=== PATIENT | male | born 1980 | race African-American/Black ===

== ENCOUNTER 2016-09-23 18:05 | Emergency (ER) | payer SELFPAY ==
[~2016-09-23] VITALS: Ht 185.4 cm; Wt 113.6 kg
[~2016-09-23 18:05] MED LIST: AMOXICILLIN 50500 MG PO; BACTRIM DS 8001 TAB PO; CEPHALEXIN500 M1 PO; FLEXERIL 1010 MG/TAB PO; LORTAB 5/500 501 TAB PO; MEDROL 4MG DOSPA4 MG PO; NAPROSYN500 MG PO; NO HOME MEDICATIONS; NORCO 325 MG-51 TAB PO; NORCO 325 MG-7.1 TAB PO; PREDNISONE10 MG PO; ULTRAM 50MG TAB50 MG PO; VENTOLIN0.09 MG IH; ZITHROMAX 250M250 MG PO; ZITHROMAX Z PA250 MG PO
[2016-09-23 18:06] VITALS: BP 179/118; PULSE 99; TEMP 98.7
== END 2016-09-23 19:27 | disposition home or self-care (01) ==
LOC: COL.ER 18:05
DX: M25.561 Pain in right knee (principal)
CPT/HCPCS: L1830

== ENCOUNTER 2017-05-02 19:06 | Emergency (ER) | payer OTHER ==
[~2017-05-02] VITALS: Ht 185.4 cm; Wt 122.7 kg
[2017-05-02 19:19] VITALS: BP 179/113; PULSE 99; TEMP 98.8
[2017-05-03] MEDS ORDERED: FLEXERIL 1010 MG/TAB PO (09:39)
== END 2017-05-02 20:27 | disposition left against medical advice (07) ==
LOC: COL.ER 19:06
DX: M54.2 Cervicalgia (principal); M54.5 Low back pain; V89.2XXA Person injured in unspecified motor-vehicle accident, traffic, initial encounter

== ENCOUNTER 2017-05-03 08:22 | Emergency (ER) | payer OTHER ==
[~2017-05-03] VITALS: Ht 185.4 cm; Wt 122.7 kg
[2017-05-03 08:42] VITALS: BP 175/116; TEMP 98
[2017-05-03] MEDS ORDERED: FLEXERIL 1010 MG/TAB PO (09:39)
[2017-05-03 10:42] VITALS: PULSE 92
== END 2017-05-03 10:44 | disposition home or self-care (01) ==
LOC: COL.ER 08:22
DX: S16.1XXA Strain of muscle, fascia and tendon at neck level, initial encounter (principal); V89.2XXA Person injured in unspecified motor-vehicle accident, traffic, initial encounter
CPT/HCPCS: J1885; J2360

== ENCOUNTER → 2017-05-24 | Outpatient (CLI) | payer SELFPAY | LOC: COL.RAD 17:53 | DX: J22 Unspecified acute lower respiratory infection (principal); R09.89 Other specified symptoms and signs involving the circulatory and respiratory systems; F17.210 Nicotine dependence, cigarettes, uncomplicated ==

== ENCOUNTER 2017-06-17 14:42 | Emergency (ER) | payer SELFPAY ==
[~2017-06-17] VITALS: Ht 185.4 cm; Wt 122.8 kg
[2017-06-17] MEDS ORDERED: ZANTAC 7575 MG PO (14:54)
[2017-06-17] MEDS ORDERED: AMOXICILLIN 8751 TAB PO (14:54)
[2017-06-17 16:30] LABS: BASO # 0.1 (0.0-0.2); BASO % 0.8 % (0.0-2.0); EOS # 0.1 (0.0-0.7); EOS % 1.3 % (0-4.0); GRAN # 5.1 (1.4-6.5); GRAN % 51.6 % (42.2-75.2); HEMOGLOBIN 14.4 g/dl (13.5-18.0); LYMPH # 3.7 (1.2-3.4); LYMPH % 37.6 % (20.0-51.0); MEAN CELL VOLUME 92 fl (80.0-100.0); MEAN CORPUSCULAR HEMOGLOBIN 31 pg (27.0-31.0); MEAN CORPUSCULAR HGB CONC 34 g/dl (33.0-37.0); MEAN PLATELET VOLUME 11.1 fl (7.4-10.4); MONO # 0.8 (0.1-0.6); MONO % 8.2 % (1.7-9.3); PLATELET COUNT 164 K/mm3 (130-400); RED BLOOD COUNT 4.58 M/mm3 (4.20-5.60); REDCELL DISTRIBUTION WIDTH-CV 12.5 % (11.5-14.5)
[2017-06-17 16:48] LABS: ALBUMIN 4.5 gm/dL (3.5-5.0); BILIRUBIN,TOTAL 0.7 mg/dL (0.0-1.0); CALCIUM 9.2 mg/dL (8.4-10.2); CREATININE, serum 1.17 mg/dL (0.66-1.25); POTASSIUM 4.7 mmol/L (3.4-5.0); TOTAL PROTEIN 7.5 gm/dL (6.4-8.2)
[2017-06-17 17:01] LABS: TROPONIN-I 0.054 ng/mL (0.000-0.034)
[2017-06-17 19:00] VITALS: BP 172/102; PULSE 88; TEMP 98
== END 2017-06-17 19:00 | disposition short-term general hospital (02) ==
LOC: COL.ER 14:42
PROVIDERS: Emergency Medicine
DX: I10 Essential (primary) hypertension (principal); F10.20 Alcohol dependence, uncomplicated; R79.89 Other specified abnormal findings of blood chemistry; F17.210 Nicotine dependence, cigarettes, uncomplicated
CPT/HCPCS: J0360; J1940; J2060; J7050

== ENCOUNTER 2017-12-05 23:23 | Emergency (ER) | payer SELFPAY ==
[~2017-12-05] VITALS: Ht 185.4 cm; Wt 113.6 kg
[~2017-12-05 23:23] MED LIST changes: +AMOXICILLIN 8751 TAB PO; +ZANTAC 7575 MG PO
[2017-12-05 23:37] VITALS: TEMP 97.6
[2017-12-06] MEDS ORDERED: K-DUR20 MEQ PO ×2 (00:10→01:05)
[2017-12-06] MEDS ORDERED: PRINIVIL20 MG PO ×2 (00:11→01:05)
[2017-12-06] MEDS ORDERED: TOPROL XL100 MG PO ×2 (00:11→01:05)
[2017-12-06] MEDS ORDERED: LASIX 80MG TABL80 MG PO ×2 (00:11→01:05)
[2017-12-06 00:15] LABS: ALANINE AMINOTRANSFERASE 61 U/L (21-72); ALBUMIN 4.8 gm/dL (3.5-5.0); ALKALINE PHOSPHATASE 76 U/L (50-136); ANION GAP 14 mmol/L (7-16); AST,SGOT 43 U/L (15-37); BILIRUBIN,TOTAL 0.6 mg/dL (0.0-1.0); BLOOD UREA NITROGEN 15 mg/dL (9-20); CARBON DIOXIDE 25 mmol/L (22-30); CHLORIDE 97 mmol/L (98-107); CREATININE, serum 1.14 mg/dL (0.66-1.25); GLUCOSE 101 mg/dL (74-106); POTASSIUM 4.1 mmol/L (3.4-5.0); SODIUM 136 mmol/L (137-145); TOTAL PROTEIN 8.8 gm/dL (6.4-8.2)
[2017-12-06 00:31] LABS: TROPONIN-I < 0.012 ng/mL (0.000-0.034)
[2017-12-06 00:33] LABS: BASO # 0.1 (0.0-0.2); BASO % 0.4 % (0.0-2.0); EOS # 0.3 (0.0-0.7); GRAN # 8.6 (1.4-6.5); GRAN % 62.2 % (42.2-75.2); HEMATOCRIT 45.1 % (42.0-52.0); HEMOGLOBIN 15.7 g/dl (13.5-18.0); LYMPH # 3.6 (1.2-3.4); LYMPH % 26.2 % (20.0-51.0); MEAN CELL VOLUME 91 fl (80.0-100.0); MEAN CORPUSCULAR HEMOGLOBIN 32 pg (27.0-31.0); MEAN CORPUSCULAR HGB CONC 35 g/dl (33.0-37.0); MEAN PLATELET VOLUME 9.4 fl (7.4-10.4); MONO # 1.2 (0.1-0.6); MONO % 8.6 % (1.7-9.3); PLATELET COUNT 256 K/mm3 (130-400); RED BLOOD COUNT 4.97 M/mm3 (4.20-5.60); REDCELL DISTRIBUTION WIDTH-CV 11.9 % (11.5-14.5)
[2017-12-06 01:02] VITALS: BP 143/96; PULSE 79
[2017-12-06] MEDS ORDERED: ZITHROMAX 250M250 MG PO (01:05)
== END 2017-12-06 01:26 | disposition home or self-care (01) ==
LOC: COL.ER 23:23
PROVIDERS: Emergency Medicine
DX: J20.9 Acute bronchitis, unspecified (principal); J45.909 Unspecified asthma, uncomplicated; I50.9 Heart failure, unspecified; I42.9 Cardiomyopathy, unspecified; F17.210 Nicotine dependence, cigarettes, uncomplicated; I11.0 Hypertensive heart disease with heart failure

== ENCOUNTER → 2018-04-08 | Outpatient (CLI) | payer SELFPAY ==
[~2018-04-08] MED LIST changes: +K-DUR20 MEQ PO; +LASIX 80MG TABL80 MG PO; +PRINIVIL20 MG PO; +TOPROL XL100 MG PO
[2018-04-08 13:13] LABS: COLLECTION METHOD RANDOM VOIDED
[2018-04-08 13:21] LABS: MUCOUS Present /lpf; PH 5 (5-8); SQUAMOUS EPITHELIAL 0-2 /hpf; URINE APPEARANCE Clear; URINE BACTERIA None Seen /hpf; URINE BILIRUBIN Negative (NEGATIVE); URINE BLOOD 2+ (NEGATIVE); URINE COLOR Yellow; URINE GLUCOSE Negative (NEGATIVE); URINE KETONE Negative (NEGATIVE); URINE LEUKOCYTE ESTERASE Negative (NEGATIVE); URINE NITRATE Negative (NEGATIVE); URINE PROTEIN(semi-quant) Negative (NEGATIVE); URINE UROBILINOGEN Negative (NEGATIVE); URINE WBC 0-2 /hpf
[2018-04-08 13:29] LABS: ALBUMIN 4.6 gm/dL (3.5-5.0); BILIRUBIN,TOTAL 0.4 mg/dL (0.0-1.0); CALCIUM 10.2 mg/dL (8.4-10.2); CHOLESTEROL RISK RATIO 5.3; CREATININE, serum 1.12 mg/dL (0.66-1.25); POTASSIUM 4.8 mmol/L (3.4-5.0)
== END ==
LOC: ZLAB.FHCC 11:31
PROVIDERS: Family Medicine
DX: I10 Essential (primary) hypertension (principal)

== ENCOUNTER 2018-04-22 07:19 | Emergency (ER) | payer SELFPAY ==
[~2018-04-22] VITALS: Ht 185.4 cm; Wt 121.8 kg
[2018-04-22 07:24] VITALS: TEMP 97.6
[2018-04-22 07:56] LABS: BASO # 0.1 (0.0-0.2); BASO % 0.6 % (0.0-2.0); EOS # 0.1 (0.0-0.7); GRAN # 4.2 (1.4-6.5); GRAN % 50.3 % (42.2-75.2); HEMATOCRIT 46.1 % (42.0-52.0); HEMOGLOBIN 15.8 g/dl (13.5-18.0); LYMPH # 3.3 (1.2-3.4); LYMPH % 39.2 % (20.0-51.0); MEAN CELL VOLUME 89 fl (80.0-100.0); MEAN CORPUSCULAR HEMOGLOBIN 30 pg (27.0-31.0); MEAN CORPUSCULAR HGB CONC 34 g/dl (33.0-37.0); MEAN PLATELET VOLUME 9.7 fl (7.4-10.4); MONO # 0.7 (0.1-0.6); MONO % 8.4 % (1.7-9.3); PLATELET COUNT 233 K/mm3 (130-400)
[2018-04-22 08:08] LABS: ALANINE AMINOTRANSFERASE 49 U/L (21-72); ALBUMIN 4.5 gm/dL (3.5-5.0); ALKALINE PHOSPHATASE 69 U/L (50-136); ANION GAP 10 mmol/L (7-16); AST,SGOT 40 U/L (15-37); BILIRUBIN,TOTAL 0.5 mg/dL (0.0-1.0); BLOOD UREA NITROGEN 21 mg/dL (9-20); CALCIUM 9.8 mg/dL (8.4-10.2); CARBON DIOXIDE 24 mmol/L (22-30); CHLORIDE 102 mmol/L (98-107); CREATININE, serum 1.15 mg/dL (0.66-1.25); GLUCOSE 105 mg/dL (74-106); POTASSIUM 4.3 mmol/L (3.4-5.0); SODIUM 136 mmol/L (137-145); TOTAL PROTEIN 7.8 gm/dL (6.4-8.2)
[2018-04-22 08:18] VITALS: BP 143/96; PULSE 89
== END 2018-04-22 08:25 | disposition home or self-care (01) ==
LOC: COL.ER 07:19
PROVIDERS: Family Medicine
DX: I11.0 Hypertensive heart disease with heart failure (principal); E78.5 Hyperlipidemia, unspecified; I50.9 Heart failure, unspecified; J45.909 Unspecified asthma, uncomplicated; F17.210 Nicotine dependence, cigarettes, uncomplicated; Z86.79 Personal history of other diseases of the circulatory system

== ENCOUNTER → 2018-05-12 | Outpatient (CLI) | payer SELFPAY ==
[2018-05-12 13:30] LABS: CALCIUM 9.6 mg/dL (8.4-10.2); CREATININE, serum 1.28 mg/dL (0.66-1.25); MAGNESIUM 2.2 mg/dL (1.6-2.3); POTASSIUM 4.5 mmol/L (3.4-5.0)
== END ==
LOC: ZLAB.FHCC 11:38
DX: Z01.89 Encounter for other specified special examinations (principal)

== ENCOUNTER 2018-06-13 12:12 | Emergency (ER) | payer SELFPAY ==
[~2018-06-13] VITALS: Ht 185.4 cm; Wt 121.2 kg
[2018-06-13] MEDS ORDERED: AMOXICILLIN875 MG PO (12:51)
[2018-06-13] MEDS ORDERED: NORCO 325 MG-51 TAB PO (12:51)
[2018-06-13 12:56] VITALS: BP 118/84; PULSE 78; TEMP 97.7
== END 2018-06-13 12:55 | disposition home or self-care (01) ==
LOC: COL.ER 12:12
DX: K08.89 Other specified disorders of teeth and supporting structures (principal); I25.10 Atherosclerotic heart disease of native coronary artery without angina pectoris; I10 Essential (primary) hypertension; F17.210 Nicotine dependence, cigarettes, uncomplicated

== ENCOUNTER 2018-08-14 09:15 | Emergency (ER) | payer SELFPAY ==
[~2018-08-14] VITALS: Ht 185.4 cm; Wt 113.6 kg
[~2018-08-14 09:15] MED LIST changes: +AMOXICILLIN875 MG PO
[2018-08-14 09:17] VITALS: TEMP 97.1
[2018-08-14] MEDS ORDERED: ZANTAC 7575 MG PO (09:23)
[2018-08-14] MEDS ORDERED: CILOXAN .3% EY2.5 ML OD (09:46)
[2018-08-14] MEDS ORDERED: AMOXICILLIN 8751 TAB PO (09:46)
[2018-08-14] MEDS ORDERED: NORVASC 5MG5 MG/TAB PO (09:47)
[2018-08-14 09:58] VITALS: BP 188/113; PULSE 86
== END 2018-08-14 10:08 | disposition home or self-care (01) ==
LOC: COL.ER 09:15
DX: H00.031 Abscess of right upper eyelid (principal); I10 Essential (primary) hypertension

== ENCOUNTER 2019-01-21 12:53 | Emergency (ER) | payer SELFPAY ==
[~2019-01-21] VITALS: Ht 185.4 cm; Wt 120.5 kg
[~2019-01-21 12:53] MED LIST changes: +CILOXAN .3% EY2.5 ML OD; +NORVASC 5MG5 MG/TAB PO
[2019-01-21 13:41] VITALS: BP 185/122; PULSE 80; TEMP 98.4
[2019-01-21] MEDS ORDERED: NORVASC 5MG5 MG/TAB PO (13:46)
== END 2019-01-21 13:52 | disposition home or self-care (01) ==
LOC: COL.ER 12:53
DX: H00.11 Chalazion right upper eyelid (principal)

== ENCOUNTER 2019-09-26 21:45 | Inpatient (IN) | payer SELFPAY ==
[~2019-09-26] VITALS: Ht 185.4 cm; Wt 115.4 kg
[2019-09-26] MEDS ORDERED: NORVASC 5MG5 MG/TAB PO (23:27)
[2019-09-27] VITALS (59 sets, daily range): BP systolic 154–186; BP diastolic 91–130; PULSE 61–85; TEMP 97.4–98; O2SAT 96–100
[2019-09-27 01:14] LABS: BASO # 0.1 (0.0-0.2); BASO % 0.5 % (0.0-2.0); EOS # 0.1 (0.0-0.7); EOS % 1.2 % (0-4.0); GRAN # 5.3 (1.4-6.5); GRAN % 48.9 % (42.2-75.2); HEMATOCRIT 44.7 % (42.0-52.0); LYMPH # 4.3 (1.2-3.4); LYMPH % 39.9 % (20.0-51.0); MEAN CELL VOLUME 91 fl (80.0-100.0); MEAN CORPUSCULAR HEMOGLOBIN 31 pg (27.0-31.0); MEAN CORPUSCULAR HGB CONC 34 g/dl (33.0-37.0); MEAN PLATELET VOLUME 9.9 fl (7.4-10.4); PLATELET COUNT 217 K/mm3 (130-400); RED BLOOD COUNT 4.89 M/mm3 (4.20-5.60); REDCELL DISTRIBUTION WIDTH-CV 12.9 % (11.5-14.5)
[2019-09-27 01:23] LABS: ALBUMIN 4.6 gm/dL (3.5-5.0); BILIRUBIN,TOTAL 0.9 mg/dL (0.0-1.0); CALCIUM 9.4 mg/dL (8.4-10.2); CREATININE, serum 1.12 (0.66-1.25); POTASSIUM 3.9 mmol/L (3.4-5.0); TOTAL PROTEIN 8.3 gm/dL (6.4-8.2)
[2019-09-27 01:40] LABS: TROPONIN-I 0.051 ng/mL (0.000-0.035)
[2019-09-27 03:43] LABS: PROTHROMBIN TIME 11.2 SECONDS (9.7-12.8)
[2019-09-27 03:46] LABS: PARTIAL THROMBOPLASTIN TIME 30.7 SECONDS (26.0-37.0)
[2019-09-27 03:49] LABS: ALCOHOL(ethanol),MEDICAL < 10 mg/dL; MAGNESIUM 2.3 mg/dL (1.6-2.3)
[2019-09-27 04:12] LABS: CHOLESTEROL RISK RATIO 4.5
--- NOTE | 2019-09-27 07:15 | NUR ---
Bedside shift report received from EMMETT Servin. Full assessment completed, vital signs stable. IV access assessed and secured. Bed in lowest position, side rails up x2, call light within reach. Patient has no complaints or concerns at this time.
[2019-09-27 08:47] LABS: COLLECTION METHOD CLEAN CATCH
[2019-09-27 08:56] LABS: MUCOUS Present /lpf; PH 7 (5-8); SQUAMOUS EPITHELIAL None Seen /hpf; URINE APPEARANCE Clear; URINE BACTERIA None Seen /hpf; URINE BILIRUBIN Negative (NEGATIVE); URINE BLOOD 3+ (NEGATIVE); URINE COLOR Yellow; URINE GLUCOSE Negative (NEGATIVE); URINE KETONE Negative (NEGATIVE); URINE LEUKOCYTE ESTERASE Negative (NEGATIVE); URINE NITRATE Negative (NEGATIVE); URINE PROTEIN(semi-quant) Negative (NEGATIVE); URINE UROBILINOGEN Negative (NEGATIVE); URINE WBC 0-2 /hpf
--- NOTE | 2019-09-27 10:43 | NUR ---
Plan: To return home with roommates as care support. patient reports his sister Salome [phone] as care support and EMr. Patient does not currently have a DPOA. He resides in [facility]. Assess: SW met with patient at his bedside. Patient reports that he does not use any DME and that he currently does not have a PCP. Patient reports that he had been going to the [facility], however he had missed an appointment and so he had not been able to go back. Patient indicated that he receives his medications from [facility] with no concerns. patient denied having any care concerns. Action: SW did discuss pay information with patient, he had already received a financial assistance application, we discussed patient connecting with [facility] to begin care services after patient leaves the hospital as well as their medication assistance program. Patient was provided with contact information for [facility]. SW may wish to follow up in regards to scheduling.
[2019-09-27 13:25] LABS: TRICYCLIC ANTIDEPRESS URINE NEGATIVE
--- NOTE | 2019-09-27 14:48 | NUR ---
Report given to EMMETT Chang on the medical floor at this time.
--- NOTE | 2019-09-27 15:09 | NUR ---
Patient transferred to medical bed 317 via wheelchair with no complications. Patient on telemetry, bed in lowest position, side rails up x2, call light placed within reach. Personal items placed in closet. Patient has no complaints or concerns at this time. EMMETT Chang notified of patient's arrival and chart placed at racing secretary and handicapper's desk.
--- NOTE | 2019-09-27 15:41 | NUR ---
PT ARRIVED TO UNIT VIA WC ACCOMPANIED BY NURSE JOYCE @ 1500. AOX4. DENIES ANY PAIN, SERRANO, CP, N/V. SOFT WRIST BRACE ON LT HAND. HAND TENDER TO TOUCH AND MOTION. APPEARS MILDLY SWOLLEN. PT REPORTS PAIN WITH MOVING FINGERS BUT ABLE TO RAISE. ON TELE. IV TO RT FA INTACT.
--- NOTE | 2019-09-27 21:40 | NUR ---
Patient blood pressure remains elevated after admistration of hydralazine. Patient currently upset and "stressed" due to hospitalization and friends texting. Educated patient to decrease stressors due to possible cause of elevated BP. Will recheck BP
--- NOTE | 2019-09-27 22:48 | NUR ---
Resting in bed. Assessment complete. Lungs clear. Heart sounds normal. Bowels active x4. Pulses present throughout. No edema noted. Denies pain. BP elevated. Provided with PRN hydralazine at this time. Will monitor.
--- NOTE | 2019-09-27 23:06 | NUR ---
Patient BP continues to be elevated. Spoke with Annie CASTILLO. orders for x1 dose of hydralazine now added. Provided to patient.
[2019-09-28] VITALS (18 sets, daily range): BP systolic 138–188; BP diastolic 68–110; PULSE 67–110; TEMP 97.2–98.2
--- NOTE | 2019-09-28 00:10 | NUR ---
BP elevated. Per Annie CASTILLO given x1 dose of lisinopril 20mg PO. Will monitor.
--- NOTE | 2019-09-28 01:55 | NUR ---
Spoke with Annie CASTILLO. Patient BP remains elevated. Orders for hydralazine 10mg IV and lisinopril 20mg PO given. Patient voices concern with hospitalization, daughter, ex-spouse, heart being f up, states "its to late, what does it matter?" Educated patient on treatment plan and provided emotional support. Patient states "I just want to go home." Allowed this nurse to give medications. Denied other needs. Will monitor.
--- NOTE | 2019-09-28 02:13 | NUR ---
Manual BP 182/110. Annie CASTILLO notified. Orders for clonidine added. Provided to patient.
--- NOTE | 2019-09-28 02:43 | NUR ---
30 minute recheck after clonidine 160/88. Patient remains asymptomatic throughout night. Annie LANDN notified.
--- NOTE | 2019-09-28 03:15 | NUR ---
1 hour recheck is 142/98. Annie CASTILLO aware. Will continue to monitor.
--- NOTE | 2019-09-28 06:11 | NUR ---
Patient blood pressure elevated during night. Communicated with hospitalist for orders. Otherwise uneventful night. Resting in bed this AM. Call light in reach.
[2019-09-28 06:50] LABS: BASO % 0.3 % (0.0-2.0); EOS # 0.1 (0.0-0.7); EOS % 1.5 % (0-4.0); GRAN # 4.7 (1.4-6.5); GRAN % 53.8 % (42.2-75.2); HEMATOCRIT 49.1 % (42.0-52.0); HEMOGLOBIN 16.7 g/dl (13.5-18.0); MEAN CELL VOLUME 90 fl (80.0-100.0); MEAN CORPUSCULAR HEMOGLOBIN 31 pg (27.0-31.0); MEAN CORPUSCULAR HGB CONC 34 g/dl (33.0-37.0); MEAN PLATELET VOLUME 9.8 fl (7.4-10.4); MONO # 0.9 (0.1-0.6); MONO % 9.8 % (1.7-9.3); PLATELET COUNT 212 K/mm3 (130-400); RED BLOOD COUNT 5.47 M/mm3 (4.20-5.60); REDCELL DISTRIBUTION WIDTH-CV 12.7 % (11.5-14.5)
[2019-09-28 06:59] LABS: CREATININE, serum 1.06 (0.66-1.25); POTASSIUM 3.8 mmol/L (3.4-5.0)
--- NOTE | 2019-09-28 07:31 | NUR ---
Report given to EMMETT Morley
--- NOTE | 2019-09-28 10:38 | NUR ---
First visit from the food cooking machine operator. No needs right now.
--- NOTE | 2019-09-28 14:43 | NUR ---
PT LAYING IN BED, GENERALLY PLEASANT. PT DOES NOT WANT TO BE HERE HE DOES HAVE CONCERNS WITH HOW HE IS GOING TO PAY FOR THIS VISIT D/T NO INSURANCE. SW IS AWARE OF HIS CONCERNS AND IS FOLLOWING UP WITH FINANCE REGARDING THIS ISSUE. PT OTHERWISE HAS NO COMPLAINTS. CALL LIGHT WITHIN REACH. NO FURTHER CONCERNS AT THIS TIME.
--- NOTE | 2019-09-28 14:51 | NUR ---
Balance Assembler followed up with patient who would like follow [facility]. SARA scheduled appointment for 10/07 @ 4472 and provided appointment to community support worker. SARA faxed records to [facility] and will continue to follow.
--- NOTE | 2019-09-28 19:18 | NUR ---
REPORT GIVEN TO EMMETT RENEE.
--- NOTE | 2019-09-28 20:04 | NUR ---
Resting in bed. Assessment complete. Lungs clear. Heart sounds normal. Bowels active x4. Pulses strong throughout. No edema noted. INT right wrist flushed without complications. Denies pain. Denies needs at this time. Call light in reach.
--- NOTE | 2019-09-28 20:20 | NUR ---
BP elevated. Annie CASTILLO notified. Patient received last dose of hydralazine at 1830. Annie CASTILLO added coreg 6.25mg. Provided to patient. Will monitor.
--- NOTE | 2019-09-28 21:19 | NUR ---
2049: Patient reported 7/10 midsternal to right side chest pain. EKG ordered. VS taken and stable. 2051: Respiratory notified of EKG orders. 2057: Respiratory and this nurse in room with patient. Patient has reported chest pain resolved without intervention. Annie CASTILLO notified-no new orders at this time. Will continue to monitor.
--- NOTE | 2019-09-28 22:08 | NUR ---
Resting in bed. Denies needs. Call light in reach.
--- NOTE | 2019-09-28 23:41 | NUR ---
Resting in bed. Denies needs. Call light in reach.
[2019-09-29] VITALS (11 sets, daily range): BP systolic 118–153; BP diastolic 20–98; PULSE 66–82; TEMP 97.7–98.5
--- NOTE | 2019-09-29 02:35 | NUR ---
Resting in bed asleep. Call light in reach.
--- NOTE | 2019-09-29 04:31 | NUR ---
resting in bed. Denies needs. Call light in reach.
--- NOTE | 2019-09-29 06:02 | NUR ---
Earlier in evening patient received an additional dose of coreg for blood pressure control. Otherwise patient had uneventful night. Started preop fluids as ordered this Am. Denied needs. Call light in reach.
--- NOTE | 2019-09-29 07:18 | NUR ---
Report given to EMMETT Garcia
[2019-09-29 07:53] LABS: HEMATOCRIT 49.4 % (42.0-52.0); HEMOGLOBIN 16.7 g/dl (13.5-18.0); MEAN CELL VOLUME 91 fl (80.0-100.0); MEAN CORPUSCULAR HEMOGLOBIN 31 pg (27.0-31.0); MEAN CORPUSCULAR HGB CONC 34 g/dl (33.0-37.0); MEAN PLATELET VOLUME 10.4 fl (7.4-10.4); PLATELET COUNT 222 K/mm3 (130-400); RED BLOOD COUNT 5.45 M/mm3 (4.20-5.60); REDCELL DISTRIBUTION WIDTH-CV 12.8 % (11.5-14.5)
[2019-09-29 08:07] LABS: ALBUMIN 4.6 gm/dL (3.5-5.0); CALCIUM 9.8 mg/dL (8.4-10.2); CREATININE, serum 1.15 (0.66-1.25); POTASSIUM 3.6 mmol/L (3.4-5.0); TOTAL PROTEIN 8.5 gm/dL (6.4-8.2)
[2019-09-29 08:17] LABS: PROTHROMBIN TIME 11.3 SECONDS (9.7-12.8)
[2019-09-29 08:20] LABS: PARTIAL THROMBOPLASTIN TIME 32.5 SECONDS (26.0-37.0)
--- NOTE | 2019-09-29 08:23 | NUR ---
PATIENT LEFT UNIT FOR ACCOUNT AUDITOR. ACCOMPANIED BY ACCOUNT AUDITOR RN. LEFT UNIT VIA BED. AT TIME OF DEPARTURE PATIENT A/O X 4. DENIES C/O PAIN OR DISCOMFORT. SEE FLOW SHEET FOR DOCUMENTED FVS WNL. PER ACCOUNT AUDITOR RN JUAN GIVE ANTI HYPERTENSIVE MEDICATIONS PRIOR TO GOING TO ACCOUNT AUDITOR.
--- NOTE | 2019-09-29 08:33 | NUR ---
SEE MERGE DOCUMENTATION FOR MEDICATION ADMINISTRATION TIMES AND INTRA/POST PROCEDURE SEDATION ASSESSMENTS. PLAN FOR RIGHT RADIAL ACCESS; RIGHT HAND BARBEAU TEST POSITIVE.
--- NOTE | 2019-09-29 13:00 | NUR ---
ALL AIR REMOVED FROM TR BAND AT THIS TIME. SMALL AMOUNT OF BLOOD NOTED UNDER TR BAND. 5ML OF AIR RE INSERTED. NO FURTHER BLEEDING NOTED.
--- NOTE | 2019-09-29 13:57 | NUR ---
Analysis Specialist attended clinical rounds with the team and patient may discharge home later today. Patient states he can afford his medications at this time and reports he received a confirmation email from [facility] about his appointment. SARA followed up with patient and obtained his phone number (cell#[phone]) then provided it to Matilda, Financial Counselor who will follow up on Financial Assistance Application. Matilda advised patient may also be able to apply for Medicaid. No additional needs at this time.
[2019-09-29] MEDS ORDERED: PRINIVIL40 MG PO (14:24)
[2019-09-29] MEDS ORDERED: NORVASC 10MG10 MG PO (14:24)
[2019-09-29] MEDS ORDERED: ASPIRIN 81M81 MG/TA2 PO (14:24)
[2019-09-29] MEDS ORDERED: COREG 25MG25 MG/TAB PO (14:24)
[2019-09-29] MEDS ORDERED: HCTZ 25MG TAB25 MG PO (14:25)
--- NOTE | 2019-09-29 19:23 | NUR ---
PATIENT DC TO HOME @ 1610 VIA POV ACCOMPANIED BY FAMILY SANDBLAST CARVER. AT TIME OF DISCHARGE PATIENT A/O X 4. DENIES C/O PAIN OR DISCOMFORT. RIGHT RADIAL HEART CATH INSERTION SITE WNL. BANDAID CDI. PRINTED DC INSTRUCTIONS REVIEWED WITH PATIENT. ACKNOWLEDGED UNDERSTANDING OF DC HEART CATH INSTRUCTIONS. ALL QUESTIONS AND CONCERNS ANSWERED DURING REVIEW.
== END 2019-09-29 16:10 | disposition home or self-care (01) | DRG 281 ==
LOC: COL.ER 21:45 → ICU 09-27 02:30 → MEDICAL 09-27 14:56
PROVIDERS: Emergency Medicine; Family Medicine; Nurse Practitioner Family; ADMIT Hospitalist
PROC: 4A023N8 Measurement of Cardiac Sampling and Pressure, Bilateral, Percutaneous Approach (ICD-10-PCS; principal; 2019-09-27)
DX: I16.1 Hypertensive emergency (principal); I21.4 Non-ST elevation (NSTEMI) myocardial infarction; I42.9 Cardiomyopathy, unspecified; I11.0 Hypertensive heart disease with heart failure; I50.9 Heart failure, unspecified; F19.10 Other psychoactive substance abuse, uncomplicated; F17.210 Nicotine dependence, cigarettes, uncomplicated; J45.909 Unspecified asthma, uncomplicated; S69.92XA Unspecified injury of left wrist, hand and finger(s), initial encounter; Z91.14 Patient's other noncompliance with medication regimen
CPT/HCPCS: 99222-AI; 99232-AI; 99239; A9500; J0360; J1644; J2250; J2785; J3010; J3411; J7030; J7050; Q9967

== ENCOUNTER 2019-10-21 15:21 | Emergency (ER) | payer SELFPAY ==
[~2019-10-21] VITALS: Ht 185.4 cm; Wt 120.5 kg
[~2019-10-21 15:21] MED LIST changes: +ASPIRIN 81M81 MG/TA2 PO; +COREG 25MG25 MG/TAB PO; +HCTZ 25MG TAB25 MG PO; +NORVASC 10MG10 MG PO; +PRINIVIL40 MG PO
[2019-10-21 15:26] VITALS: TEMP 98.5
[2019-10-21] MEDS ORDERED: PROAIR HFA0.09 MG/AC IH (15:53)
[2019-10-21] MEDS ORDERED: TUSS PO (15:53)
[2019-10-21] MEDS ORDERED: ZITHROMAX Z PA250 MG PO (15:53)
[2019-10-21 16:05] VITALS: BP 128/82; PULSE 85
== END 2019-10-21 16:07 | disposition home or self-care (01) ==
LOC: COL.ER 15:21
DX: R53.81 Other malaise (principal); R07.0 Pain in throat; J34.89 Other specified disorders of nose and nasal sinuses; R09.81 Nasal congestion; Z79.82 Long term (current) use of aspirin; Z20.828 Contact with and (suspected) exposure to other viral communicable diseases

== ENCOUNTER 2020-06-19 22:49 | Emergency (ER) | payer SELFPAY ==
[~2020-06-19] VITALS: Ht 185.4 cm; Wt 113.6 kg
[~2020-06-19 22:49] MED LIST changes: +PROAIR HFA0.09 MG/AC IH; +TUSS PO
[2020-06-19 22:52] VITALS: TEMP 97.7
[2020-06-19 23:21] VITALS: BP 132/78; PULSE 82
== END 2020-06-19 23:28 | disposition home or self-care (01) ==
LOC: COL.ER 22:49
DX: K08.89 Other specified disorders of teeth and supporting structures (principal); I11.0 Hypertensive heart disease with heart failure; I50.9 Heart failure, unspecified; J45.909 Unspecified asthma, uncomplicated; F17.210 Nicotine dependence, cigarettes, uncomplicated; Z79.82 Long term (current) use of aspirin; Z79.891 Long term (current) use of opiate analgesic
CPT/HCPCS: J1885

== ENCOUNTER 2020-08-10 08:36 | Emergency (ER) | payer SELFPAY ==
[~2020-08-10] VITALS: Ht 185.4 cm; Wt 120.5 kg
[2020-08-10 08:41] VITALS: BP 136/93; PULSE 90; TEMP 98.5
[2020-08-10] MEDS ORDERED: MOTRIN 800800 MG/TAB PO (09:11)
[2020-08-10] MEDS ORDERED: CLEOCIN HCL300 MG PO (09:11)
[2020-08-10] MEDS ORDERED: NORCO 325 MG-51 TAB PO (09:11)
== END 2020-08-10 09:19 | disposition home or self-care (01) ==
LOC: COL.ER 08:36
DX: K08.89 Other specified disorders of teeth and supporting structures (principal); J45.909 Unspecified asthma, uncomplicated; I11.0 Hypertensive heart disease with heart failure; F17.210 Nicotine dependence, cigarettes, uncomplicated; Z79.82 Long term (current) use of aspirin

== ENCOUNTER 2020-09-02 16:15 | Emergency (ER) | payer SELFPAY ==
[~2020-09-02] VITALS: Ht 185.4 cm; Wt 116.4 kg
[~2020-09-02 16:15] MED LIST changes: +CLEOCIN HCL300 MG PO; +MOTRIN 800800 MG/TAB PO
[2020-09-02 16:21] VITALS: BP 111/77; TEMP 97.7
[2020-09-02] MEDS ORDERED: NAPROSYN500 MG PO (16:51)
[2020-09-02 17:34] VITALS: PULSE 68
== END 2020-09-02 17:34 | disposition home or self-care (01) ==
LOC: COL.ER 16:15
DX: S83.91XA Sprain of unspecified site of right knee, initial encounter (principal); I11.0 Hypertensive heart disease with heart failure; I50.9 Heart failure, unspecified; F17.210 Nicotine dependence, cigarettes, uncomplicated; Z79.899 Other long term (current) drug therapy; X58.XXXA Exposure to other specified factors, initial encounter; Y93.39 Activity, other involving climbing, rappelling and jumping off; Y99.0 Civilian activity done for income or pay
CPT/HCPCS: J1885

== ENCOUNTER 2020-11-18 11:23 | Emergency (ER) | payer SELFPAY ==
[~2020-11-18] VITALS: Ht 185.4 cm; Wt 110.9 kg
[2020-11-18 11:52] VITALS: TEMP 98.9
[2020-11-18 12:17] LABS: BASO # 0.1 (0.0-0.2); BASO % 0.6 % (0.0-2.0); EOS # 0.1 (0.0-0.7); EOS % 0.9 % (0-4.0); GRAN # 6.3 (1.4-6.5); GRAN % 61.3 % (42.2-75.2); HEMATOCRIT 43.7 % (42.0-52.0); HEMOGLOBIN 14.6 g/dl (13.5-18.0); LYMPH # 2.6 (1.2-3.4); LYMPH % 25.7 % (20.0-51.0); MEAN CELL VOLUME 91 fl (80.0-100.0); MEAN CORPUSCULAR HEMOGLOBIN 30 pg (27.0-31.0); MEAN CORPUSCULAR HGB CONC 33 g/dl (33.0-37.0); MEAN PLATELET VOLUME 9.5 fl (7.4-10.4); MONO # 1.1 (0.1-0.6); PLATELET COUNT 231 K/mm3 (130-400); REDCELL DISTRIBUTION WIDTH-CV 12.4 % (11.5-14.5)
[2020-11-18 12:29] LABS: ALANINE AMINOTRANSFERASE 42 U/L (4-49); ALBUMIN 4.4 gm/dL (3.5-5.0); ALKALINE PHOSPHATASE 67 U/L (50-136); ANION GAP 9 mmol/L (7-16); AST,SGOT 30 U/L (15-37); BILIRUBIN,TOTAL 0.4 mg/dL (0.0-1.0); BLOOD UREA NITROGEN 11 mg/dL (9-20); CALCIUM 9.5 mg/dL (8.4-10.2); CARBON DIOXIDE 27 mmol/L (22-30); CHLORIDE 100 mmol/L (98-107); GLUCOSE 118 mg/dL (74-106); POTASSIUM 4.1 mmol/L (3.4-5.0); SODIUM 135 mmol/L (137-145); TOTAL PROTEIN 8.4 gm/dL (6.4-8.2)
[2020-11-18 12:50] LABS: TROPONIN-I < 0.012 ng/mL (0.000-0.035)
[2020-11-18] MEDS ORDERED: ZITHROMAX Z PA250 MG PO (14:53)
[2020-11-18] MEDS ORDERED: PREDNISONE20 MG PO (14:53)
[2020-11-18] MEDS ORDERED: PROVENTIL0.09 MG/A1 IH (14:54)
[2020-11-18 14:56] VITALS: BP 136/91; PULSE 79
== END 2020-11-18 15:35 | disposition home or self-care (01) ==
LOC: COL.ER 11:23
PROVIDERS: Nurse Practitioner Family
DX: J01.80 Other acute sinusitis (principal); B96.89 Other specified bacterial agents as the cause of diseases classified elsewhere; J20.9 Acute bronchitis, unspecified; I11.0 Hypertensive heart disease with heart failure; I50.9 Heart failure, unspecified; F17.219 Nicotine dependence, cigarettes, with unspecified nicotine-induced disorders; Z79.899 Other long term (current) drug therapy; Z20.822 Contact with and (suspected) exposure to COVID-19
CPT/HCPCS: J1885; J2930; J7030

== ENCOUNTER 2021-02-04 16:29 | Emergency (ER) | payer SELFPAY ==
[~2021-02-04] VITALS: Ht 185.4 cm; Wt 118.2 kg
[~2021-02-04 16:29] MED LIST changes: +PREDNISONE20 MG PO; +PROVENTIL0.09 MG/A1 IH
[2021-02-04 17:30] VITALS: BP 115/75; PULSE 74; TEMP 98.1
== END 2021-02-04 20:00 | disposition left against medical advice (07) ==
LOC: COL.ER 16:29
DX: K08.89 Other specified disorders of teeth and supporting structures (principal)

== ENCOUNTER 2021-03-19 18:51 | Emergency (ER) | payer SELFPAY ==
[~2021-03-19] VITALS: Ht 185.4 cm; Wt 111.4 kg
[2021-03-19 19:21] VITALS: TEMP 97.2
[2021-03-19] MEDS ORDERED: PROAIR HFA0.09 MG/AC IH (21:43)
[2021-03-19] MEDS ORDERED: PREDNISONE20 MG PO (21:43)
[2021-03-19 21:58] VITALS: BP 124/80; PULSE 80
== END 2021-03-19 21:58 | disposition home or self-care (01) ==
LOC: COL.ER 18:51
DX: R09.81 Nasal congestion (principal); J45.909 Unspecified asthma, uncomplicated; I10 Essential (primary) hypertension; Z20.822 Contact with and (suspected) exposure to COVID-19; Z79.899 Other long term (current) drug therapy
CPT/HCPCS: J7512

== ENCOUNTER 2021-05-06 17:09 | Emergency (ER) | payer SELFPAY ==
[~2021-05-06] VITALS: Ht 185.4 cm; Wt 111.4 kg
[2021-05-06 17:29] VITALS: BP 138/91; TEMP 99.1
[2021-05-06] MEDS ORDERED: ASPIRIN 81M81 MG/TA2 PO (17:50)
[2021-05-06] MEDS ORDERED: LIPITOR 40MG TA40 MG PO (17:50)
[2021-05-06 18:20] VITALS: PULSE 88
== END 2021-05-06 18:21 | disposition home or self-care (01) ==
LOC: COL.ER 17:09
DX: U07.1 COVID-19 (principal); I50.9 Heart failure, unspecified; F17.210 Nicotine dependence, cigarettes, uncomplicated; Z79.82 Long term (current) use of aspirin

== ENCOUNTER 2021-10-21 17:27 | Emergency (ER) | payer SELFPAY ==
[~2021-10-21] VITALS: Ht 185.4 cm; Wt 111.4 kg
[~2021-10-21 17:27] MED LIST changes: +LIPITOR 40MG TA40 MG PO
[2021-10-21 17:45] VITALS: TEMP 98.9
[2021-10-21 19:07] VITALS: BP 138/66; PULSE 77
== END 2021-10-21 19:07 | disposition home or self-care (01) ==
LOC: COL.ER 17:27
DX: S93.401A Sprain of unspecified ligament of right ankle, initial encounter (principal); F17.210 Nicotine dependence, cigarettes, uncomplicated; Z28.310 Unvaccinated for COVID-19; X50.1XXA Overexertion from prolonged static or awkward postures, initial encounter